=== PATIENT | female | born 1950 | race Caucasian/White ===

== ENCOUNTER → 2018-06-13 | Outpatient (CLI) | payer MEDICARE ==
--- NOTE | 2018-06-13 17:22 | BD ---
EXAMINATION TYPE: Axial Bone Density DATE OF EXAM: 06/13/2018 COMPARISON: 11.09.2012 CLINICAL HISTORY: 67 YR OLD FEMALE....ICD-10 CODE: Z78.0 POST MENOPAUSAL W/O HRT Height: 62.2 Weight: 115 FRAX RISK QUESTIONS: Current Tobacco Use: QUIT DEC 2016 RISK FACTORS HISTORY OF: HX OF BOTH FEET/TOES FRACTURED...UNDER AGE 50 Family History of Osteoporosis: NONE KNOWN Active: YES Diet low in dairy products/other sources of calcium: NO Postmenopausal woman: YES, AT AGE 52 Lost more than 2 inches in height since high school: YES MEDICATIONS: Additional Medications: CALCIUM AND D3 IN MULTIVITAMIN, Additional History: EYE SURGERY EXAM MEASUREMENTS: Bone mineral densitometry was performed using the [employer] System. Bone mineral density as measured about the Lumbar spine is: ----- L1-L4(G/cm2): 0.961 T Score Values are as follows: ----- L1: -3.2 ----- L2: -3.5 ----- L3: -1.8 ----- L4: -0.8 ----- L1-L4: -2.2 Bone mineral density has: Decreased -4.7% since study of: 11.09.2012 Bone mineral density about the R hip (g/cm2): 0.739 Bone mineral density about the L hip (g/cm2): 0.678 T Score values are as follows: -----R Neck: -2.9 -----L Neck: -2.7 -----R Total: -2.1 -----L Total: -2.6 Bone mineral density has: Decreased -4.1% since study of: 11.09.2012 FRAX%s: THERE IS A 15.6% CHANCE OF A MAJOR OSTEOPOROTIC FX AND A 4.8% FOR A HIP FX.....PROBABILITY OF FX IN 10 YRS TIME IMPRESSION: Osteoporosis (T Score less than -2.5). There is increased fracture risk and therapy is usually indicated based on age. Re-Screen 1-2 years. NOTE: T-SCORE=SD OF THE YOUNG ADULT MEAN.
--- NOTE | 2018-06-15 12:44 | MM ---
Reason for exam: screening (asymptomatic). Last mammogram was performed 1 year and 11 months ago. History: Patient is postmenopausal and had first child at age 35. Physical Findings: A clinical breast exam by your physician is recommended on an annual basis and results should be correlated with mammographic findings. MG 3D Screening Mammo W/Cad Bilateral CC and MLO view(s) were taken. Prior study comparison: July 13, 2016, bilateral MG 3d screening mammo w/cad. November 09, 2012, bilateral digital screening mammo w/CAD. The breast tissue is heterogeneously dense. This may lower the sensitivity of mammography. Asymmetric breast tissue in the left breast, stable. There is no discrete abnormality. ASSESSMENT: Negative, BI-RAD 1 RECOMMENDATION: Routine screening mammogram of both breasts in 1 year.
== END ==
LOC: RADMAMWWP 12:50
PROVIDERS: ATTEND Family Medicine
DX: Z12.31 Encounter for screening mammogram for malignant neoplasm of breast (principal); Z78.0 Asymptomatic menopausal state; M81.0 Age-related osteoporosis without current pathological fracture
CPT/HCPCS: 77063; 77067; 77080

== ENCOUNTER → 2018-06-19 | Outpatient (CLI) | payer MEDICARE ==
--- NOTE | 2018-06-19 12:43 | XR ---
EXAMINATION TYPE: XR lumbar spine 2 or 3V DATE OF EXAM: 06/19/2018 CLINICAL HISTORY: Low back pain for 6 months with no known injury TECHNIQUE: Frontal and lateral images of the lumbar spine are obtained. COMPARISON: 06/20/2013 FINDINGS: There are 5 lumbar type vertebral bodies identified. The lumbar spine shows satisfactory vertebral body heights without acute fracture. There is new grade 1 anterolisthesis of L4 on L5, like ly on a degenerative basis with extensive facet arthropathy. Multilevel degenerative changes of the l umbar spine have progressed from the prior of 2012 and are seen as endplate sclerosis, intervertebral disc space narrowing and facet arthropathy. There also appears to be mild generalized osseous demine ralization. 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 Very mild lower lumbar dextroscoliosis. Moderate atherosclerosis is also seen in the abdominal aorta and its branches. Over lying bowel is nondilated. IMPRESSION: 1. No new evidence of acute fracture or vertebral body height loss. 2. New malalignment of the lumbar spine (grade 1 anterolisthesis of L4 on L5) in comparison to the pr ior of 06/20/2013, likely on a degenerative basis. 3. Progression of degenerative disc disease in comparison to the prior, now moderate in degree.
== END | disposition home or self-care (01) ==
LOC: RADXRMAIN 12:06
PROVIDERS: ATTEND Internal Medicine Geriatric Medicine
DX: M51.36 Other intervertebral disc degeneration, lumbar region (principal); M43.16 Spondylolisthesis, lumbar region
CPT/HCPCS: 72100

== ENCOUNTER 2018-07-27 06:49 | Day surgery (SDC) | payer MEDICARE ==
[2018-07-25 10:35] VITALS: BMI 20.5
[~2018-07-27 06:49] MED LIST: LACTATED RINGERS 1,000 ML IV SCH
[2018-07-27 07:19] VITALS: TEMP 98.2
[2018-07-27] MEDS ORDERED: PROPOFOL 10 MG/ML 20 ML VIAL IV ONE (07:43)
[2018-07-27] MEDS ORDERED: GLUCAGON 1 MG/ML VIAL ONE (07:43)
--- NOTE | 2018-07-27 08:02 | P.GSHP ---
History of Present Illness H&P Date: 07/27/18 Chief Complaint: Screening colonoscopy This is a 67-year-old female who presents today for screening colonoscopy. Her last colonoscopy was over 10 years ago. She denies a significant GI complaints. Past Medical History Additional Past Medical History / Comment(s): sinus headaches, hx anemia, History of Any Multi-Drug Resistant Organisms: None Reported Past Surgical History: Tonsillectomy Additional Past Surgical History / Comment(s): rupal eye surgery for lazy eye, RK surgery rupal, Past Anesthesia/Blood Transfusion Reactions: No Reported Reaction Smoking Status: Former smoker - Past Family History Mother Family Medical History: No Reported History Medications and Allergies Home Medications Medication Instructions Recorded Confirmed Type Calcium Gummie 1 tab PO DAILY 07/25/18 07/27/18 History Multivitamin [Multivitamins Adult 1 each PO DAILY 07/25/18 07/27/18 History Gummies] Allergies Allergy/AdvReac Type Severity Reaction Status Date / Time acetaminophen [From Vicodin] Allergy Nausea & Verified 07/25/18 10:27 Vomiting hydrocodone [From Vicodin] Allergy Nausea & Verified 07/25/18 10:27 Vomiting Surgical - Exam Vital Signs Temp Pulse Resp BP Pulse Ox 98.2 F 65 14 93/56 100 07/27/18 07:17 07/27/18 07:17 07/27/18 07:17 07/27/18 07:17 07/27/18 07:17 - General well developed, no distress - Eyes PERRL - ENT normal pinna - Neck no masses - Respiratory normal expansion - Cardiovascular Rhythm: regular - Abdomen Abdomen: soft, non tender Assessment and Plan Assessment: We will perform screening colonoscopy.
[2018-07-27 08:28] VITALS: RESP 16
[2018-07-27 08:52] VITALS: BP 105/61; PULSE 55
--- NOTE | 2018-07-27 09:26 | P.OP ---
Date of Procedure: 07/27/18 Preoperative Diagnosis: Screening colonoscopy Postoperative Diagnosis: Hemorrhoids, internal and external Diverticulosis Sigmoid colon polyp Procedure(s) Performed: Colonoscopy Anesthesia: MAC Surgeon: Alfredo Zamora Pathology: other (Sigmoid colon polyp) Condition: stable Disposition: PACU Description of Procedure: The patient's placed on the endoscopy table in the lateral position. She received IV sedation. Digital rectal exam was performed which revealed internal and external hemorrhoids. The flexible colonoscope was then placed patient anus and passed throughout the entire colon. The ileocecal valve was visualized. The cecum, ascending and transverse colon appeared normal. In the descending and sigmoid colon there was moderate diverticular changes. There was a polyp seen in the sigmoid colon this removed with a cold forcep. The scope was brought back the rectum and this appeared normal. Scope was withdrawn for patient.
== END 2018-07-27 09:19 | disposition home or self-care (01) ==
LOC: ORWHC2ENDO 06:49
PROVIDERS: ATTEND Surgery
DX: Z12.11 Encounter for screening for malignant neoplasm of colon (principal); K63.5 Polyp of colon; K64.8 Other hemorrhoids; K64.4 Residual hemorrhoidal skin tags; K57.30 Diverticulosis of large intestine without perforation or abscess without bleeding; Z88.6 Allergy status to analgesic agent; Z88.5 Allergy status to narcotic agent; Z87.891 Personal history of nicotine dependence
CPT/HCPCS: 88305; 45380; J1610; J2704

== ENCOUNTER → 2020-09-29 | Outpatient (CLI) | payer MEDICARE ==
--- NOTE | 2020-09-29 13:50 | BD ---
EXAMINATION TYPE: Axial Bone Density DATE OF EXAM: 09/29/2020 COMPARISON: NONE CLINICAL HISTORY: Height: 63 Weight: 130.2 FRAX RISK QUESTIONS: Alcohol (3 or more units per day): no Family History (Parent hip fracture): no Glucocorticoids (More than 3mos): no (Ex: prednisone, prednisolone, methylprednisolone, dexamethasone, and hydrocortisone). History of Fracture in Adulthood: no Secondary Osteoporosis: 1. Type 1 Diabetes: no 2. Hyperthyroidism: no 3. Menopause before 45: no 4. Malnutrition: no 5. Chronic liver disease: no Rheumatoid Arthritis: no Current Tobacco Use: no RISK FACTORS HISTORY OF: Family History of Osteoporosis: no Active: yes Diet low in dairy products/other sources of calcium: yes Postmenopausal woman: age 55 Lost more than 2 inches in height since high school: no MEDICATIONS: wellbutrin Osteoporosis Medications: prolia How Long: Additional History: EXAM MEASUREMENTS: Bone mineral densitometry was performed using the [employer] System. Bone mineral density as measured about the Lumbar spine is: ----- L1-L4(G/cm2): 1.077 T Score Values are as follows: ----- L2: -2.2 ----- L3: -0.9 ----- L4: 2.1 ----- L1-L4: -0.9 Bone mineral density has: increased 18.4 % since study of: 06.13.2018 Bone mineral density about the R hip (g/cm2): 0.670 Bone mineral density about the L hip (g/cm2): 0.763 T Score values are as follows: -----R Neck: -2.6 -----L Neck: -2.0 -----R Total: -1.7 -----L Total: -2.2 Bone mineral density has: increased 5.7 % since study of: 06.13.2018 IMPRESSION: Osteopenia (T Score between -2.5 and -1). There is slightly increased risk of fracture and the patient may be considered for treatment. Re-Screen 2-5 years. NOTE: T-SCORE=SD OF THE YOUNG ADULT MEAN.
--- NOTE | 2020-10-01 08:32 | MM ---
Reason for exam: screening (asymptomatic). Last mammogram was performed 2 years and 4 months ago. History: Patient is postmenopausal and had first child at age 35. Physical Findings: A clinical breast exam by your physician is recommended on an annual basis and results should be correlated with mammographic findings. MG 3D Screening Mammo W/Cad Bilateral CC and MLO view(s) were taken. Prior study comparison: June 13, 2018, bilateral MG 3d screening mammo w/cad. July 13, 2016, bilateral MG 3d screening mammo w/cad. Focal asymmetry right outer CC. This finding is changed when compared with previous exams. ASSESSMENT: Incomplete: need additional imaging evaluation, BI-RAD 0 RECOMMENDATION: Special view mammogram of the right breast. If lesion persists on supplemental views, image directed ultrasound is recommended. [facility] will attempt to contact patient to return for supplemental views and ultrasound if indicated.
== END | disposition home or self-care (01) ==
LOC: RADMAMWWP 12:29
PROVIDERS: ATTEND Internal Medicine Geriatric Medicine
DX: Z12.31 Encounter for screening mammogram for malignant neoplasm of breast (principal); M81.0 Age-related osteoporosis without current pathological fracture; M85.80 Other specified disorders of bone density and structure, unspecified site
CPT/HCPCS: 77063; 77067; 77080

== ENCOUNTER → 2020-10-02 | Outpatient (CLI) | payer MEDICARE ==
--- NOTE | 2020-10-02 08:19 | MM ---
Reason for exam: additional evaluation requested from abnormal screening. Last mammogram was performed less than 1 month ago. History: Patient is postmenopausal and had first child at age 35. Physical Findings: Nurse did not find any significant physical abnormalities on exam. MG 3D Work Up W/Cad RT Spot compression CC and LM view(s) were taken of the right breast. Prior study comparison: September 29, 2020, bilateral MG 3d screening mammo w/cad. June 13, 2018, bilateral MG 3d screening mammo w/cad. There are scattered fibroglandular densities. There is no discrete abnormality. These results were verbally communicated with the patient and result sheet given to the patient on 10/02/20. ASSESSMENT: Benign, BI-RAD 2 RECOMMENDATION: Return to routine screening mammogram schedule for both breasts.
== END | disposition home or self-care (01) ==
LOC: RADMAMWWP 07:02
PROVIDERS: ATTEND Internal Medicine Geriatric Medicine
DX: R92.8 Other abnormal and inconclusive findings on diagnostic imaging of breast (principal)
CPT/HCPCS: 77065; G0279; 77061

== ENCOUNTER 2020-11-04 09:26 | Day surgery (SDC) | payer MEDICARE ==
[2020-10-30 16:57] VITALS: BMI 22.4
[~2020-11-04 09:26] MED LIST changes: +LIDOCAINE 1% (10MG/ML) FOR IV START INTRADERMA PRN
[2020-11-04 09:50] VITALS: TEMP 97.6
[2020-11-04] MEDS ORDERED: PROPOFOL 10 MG/ML 20 ML VIAL IV ONE (10:27)
--- NOTE | 2020-11-04 10:30 | P.GSHP ---
History of Present Illness H&P Date: 11/04/20 Chief Complaint: Colon cancer screening Patient here today for colonoscopy. Here for screening colonoscopy. No bowel complaints. Last colonoscopy 2 years ago. Patient had a benign mucosal polyp at that time. No family history of colon cancer Past Medical History Additional Past Medical History / Comment(s): hx anemia, hx. colon polyps, osteoporosis History of Any Multi-Drug Resistant Organisms: None Reported Past Surgical History: Tonsillectomy Additional Past Surgical History / Comment(s): rupal eye surgery for lazy eye, RK surgery rupal, colonoscopy Past Anesthesia/Blood Transfusion Reactions: No Reported Reaction Smoking Status: Former smoker - Past Family History Mother Family Medical History: No Reported History Medications and Allergies Home Medications Medication Instructions Recorded Confirmed Type Denosumab [Prolia] 60 mg SQ ONCE 10/30/20 10/30/20 History buPROPion XL [Wellbutrin Xl] 150 mg PO DAILY 10/30/20 10/30/20 History Allergies Allergy/AdvReac Type Severity Reaction Status Date / Time acetaminophen [From Vicodin] AdvReac Nausea & Verified 11/04/20 09:41 Vomiting hydrocodone [From Vicodin] AdvReac Nausea & Verified 11/04/20 09:41 Vomiting Surgical - Exam Vital Signs Temp Pulse Resp BP Pulse Ox 97.6 F 70 17 136/88 98 11/04/20 09:48 11/04/20 09:48 11/04/20 09:48 11/04/20 09:48 11/04/20 09:48 Physical exam: General: Well-developed, well-nourished HEENT: Normocephalic, sclerae nonicteric Abdomen: Nontender, nondistended Extremities: No edema Neuro: Alert and oriented Assessment and Plan (1) Colon cancer screening Narrative/Plan: Will proceed with colonoscopy at this time Current Visit: Yes Status: Acute Code(s): Z12.11 - ENCOUNTER FOR SCREENING FOR MALIGNANT NEOPLASM OF COLON SNOMED Code(s): 530778903
--- NOTE | 2020-11-04 11:06 | P.PCN ---
Date of Procedure: 11/04/20 Procedure(s) Performed: PREOPERATIVE DIAGNOSIS: Colon cancer screening POSTOPERATIVE DIAGNOSIS: Proximal transverse colon polyp 2, descending colon polyp PROCEDURE: Colonoscopy with snare polypectomy ANESTHESIA: MAC SURGEON: Vu Kinsey M.D. SPECIMENS: Polyps ENDOSCOPIC PROCEDURE: The patient was placed on the endoscopy table in the left decubitus position. The Olympus colonoscope was inserted into the anus and passed under direct visualization to the base of the cecum. The appendiceal orifice was visualized. From that point the scope was slowly withdrawn inspecting all surfaces carefully. There were no neoplastic inflammatory or polypoid lesions throughout the cecum or ascending colon. In the proximal transverse colon there was a sessile polyp that measured 8 mm and was removed using the snare with cautery technique. A long a fold opposite this polyp was a thickened area of mucosa. Initially I took a biopsy of that to see if this was adenomatous. As we inspected more closely it did appear polypoid in nature and was partially removed using the snare with cautery technique. These were all sent together as transverse colon polyp. The transverse colon distally appeared normal. In the mid descending colon another polyp was seen and removed using the snare with cautery technique. The remainder of the sigmoid and rectum was normal. There was no visible diverticulosis. Digital rectal examination was normal. The patient was taken to the recovery room in stable condition per anesthesia guidelines. RECOMMENDATIONS: Await biopsy results. Recommend follow-up colonoscopy one year
[2020-11-04 11:15] VITALS: RESP 16
[2020-11-04 11:33] VITALS: BP 112/73; PULSE 62
== END 2020-11-04 12:03 | disposition home or self-care (01) ==
LOC: ORWHC2ENDO 09:26
PROVIDERS: ATTEND Surgery
DX: D12.3 Benign neoplasm of transverse colon (principal); K63.5 Polyp of colon; D12.4 Benign neoplasm of descending colon; Z86.010 Personal history of colon polyps; M81.0 Age-related osteoporosis without current pathological fracture; K08.89 Other specified disorders of teeth and supporting structures; F32.9 Major depressive disorder, single episode, unspecified; Z98.890 Other specified postprocedural states; Z86.2 Personal history of diseases of the blood and blood-forming organs and certain disorders involving the immune mechanism; Z90.89 Acquired absence of other organs; Z86.69 Personal history of other diseases of the nervous system and sense organs; Z87.891 Personal history of nicotine dependence; Z79.899 Other long term (current) drug therapy; Z88.5 Allergy status to narcotic agent
CPT/HCPCS: 45385; 88305; J2704; 45380

== ENCOUNTER → 2022-09-10 | Outpatient (CLI) | payer MEDICARE ==
[2022-09-10 11:56] LABS: African American GFR (CKD) >90 (>60 ml/min/1.73 sqM); Blood Urea Nitrogen 16 mg/dL (7-17); Non-African American GFR(CKD) 80 (>60 ml/min/1.73 sqM)
--- NOTE | 2022-09-10 13:35 | CT ---
EXAMINATION TYPE: CT abdomen pelvis w con DATE OF EXAM: 09/10/2022 COMPARISON: None HISTORY: LLQ pain, Lt groin pain CT DLP: 494 mGycm Automated exposure control for dose reduction was used. TECHNIQUE: Helical acquisition of images was performed from the lung bases through the pelvis. CONTRAST: Performed with Oral Contrast and with IV Contrast, patient injected with 70 mL of Isovue 300. FINDINGS: The lung bases are clear. There is a small ill-defined 10 mm low-density lesion within the liver which most likely represents a benign hemangioma. There is a tiny gallstone. There is no mass within the pancreas, spleen or adrenal glands. The kidneys excrete contrast promptly and symmetrically and there is no solid renal mass or hydroneph rosis. There is no retroperitoneal adenopathy or hemorrhage in the caliber the abdominal aorta is normal. There is a short segment of sigmoid colon where the bowel wall appears mildly thickened and there are multiple diverticula. There is a moderate amount of free fluid within the cul-de-sac. There is no abdominal abscess or free intraperitoneal air. IMPRESSION: 1. Questionable inflammatory changes involving the sigmoid colon with free fluid in the pelvis. The p ossibility of diverticulitis is not excluded and clinical correlation follow-up is recommended. 2. No bowel obstruction, abdominal or pelvic abscess or free intraperitoneal air. 3. Small gallstone. 4. Probable small 10 mm hemangioma the liver.
== END | disposition home or self-care (01) ==
LOC: RADCTMAIN 11:07
PROVIDERS: ATTEND Internal Medicine Geriatric Medicine
DX: K80.20 Calculus of gallbladder without cholecystitis without obstruction (principal)
CPT/HCPCS: 82565; 84520; 74177; 36415; Q9967

== ENCOUNTER → 2022-10-01 | Outpatient (CLI) | payer MEDICARE ==
--- NOTE | 2022-10-01 09:31 | US ---
EXAMINATION TYPE: US transvaginal DATE OF EXAM: 10/01/2022 COMPARISON: NONE CLINICAL HISTORY: R10.2 PELVIC PAIN. LLQ pain, burning sensation and pain TECHNIQUE: TV Transvaginal sonographic images Date of LMP: 20 years ago EXAM MEASUREMENTS: Uterus: 4.7 x 2.4 x 3.9 cm Endometrial Stripe: 0.17 cm Right Ovary: not seen Left Ovary: not seen 1. Uterus: Anteverted wnl 2. Endometrium: fluid seen, not thickened 3. Right Ovary: not seen due to atrophy and bowel gas 4. Left Ovary: not seen due to atrophy and bowel gas 5. Bilateral Adnexa: varicose vessels are prominent within left adnexa, possible pelvic congestion s yndrome 6. Posterior cul-de-sac: wnl IMPRESSION: 1. Endometrium measures only 2 mm but there is a small amount of fluid within the endometrium. This s hould be correlated clinically. Recommend gynecology consultation 2. The ovaries are not seen. 3. Varicose vessels are prominent in the left adnexa suggestive of pelvic varices and can occasionall y be associated with pelvic congestion syndrome.
--- NOTE | 2022-10-01 10:39 | BD ---
EXAMINATION TYPE: Axial Bone Density DATE OF EXAM: 10/01/2022 COMPARISON: 09/29/2020 CLINICAL HISTORY: 72 years year old Female. ICD-10 CODE: M81.0 AGE RELATED OSTEOPOROSIS Height: 62.5 IN Weight: 137 LBS RISK FACTORS HISTORY OF: Active: YES Postmenopausal woman: AGE 52 MEDICATIONS: Osteoporosis Medications: YES Which medication: Prolia FOSAMAX How Lon YEARS Additional Medications: CHOLESTEROL MEDS EXAM MEASUREMENTS: Bone mineral densitometry was performed using the [employer] System. Bone mineral density as measured about the Lumbar spine is: ----- L1-L4(G/cm2): 1.152 T Score Values are as follows: ----- L1: -2.0 ----- L2: -1.7 ----- L3: -0.3 ----- L4: 2.3 ----- L1-L4: -0.2 Bone mineral density has: Increased 6.6% since study of: 09/29/2020 Bone mineral density about the R hip (g/cm2): 0.696 Bone mineral density about the L hip (g/cm2): 0.729 T Score values are as follows: -----R Neck: -2.5 -----L Neck: -2.2 -----R Total: -1.6 -----L Total: -2.7 Bone mineral density has: Decreased -2.4% since study of: 09/29/2020 FRAX%s: The graph provided illustrates a 6.7 chance for a major osteoporotic fx and a 2.3 chance for the hips probability for fx in 10 years time. IMPRESSION: Osteoporosis (T Score less than -2.5). There is increased fracture risk and therapy is usually indicated based on age. Re-Screen 1-2 years. NOTE: T-SCORE=SD OF THE YOUNG ADULT MEAN.
--- NOTE | 2022-10-04 10:44 | MM ---
Reason for Exam: Screening (asymptomatic). Last mammogram was performed 2 year(s) and 0 month(s) ago. Patient History: Menarche at age 14. First Full-Term at age 35. Late child-bearing (after 30). Postmenopausal. Patient has history of breast feeding. Risk Values: Nayeli 5 year model risk: 2.2%. NCI Lifetime model risk: 5.7%. Prior Study Comparison: 06/13/2018 Bilateral Screening Mammogram, [facility]. 09/29/2020 Bilateral Screening Mammogram, [facility]. 10/02/2020 Right Diagnostic Mammogram, [facility]. Tissue Density: The breast tissue is heterogeneously dense. This may lower the sensitivity of mammography. Findings: Analyzed By CAD. There is no suspicious group of microcalcifications or new suspicious mass in either breast. Overall Assessment: Negative, BI-RAD 1 Management: Screening Mammogram of both breasts in 1 year. A clinical breast exam by your physician is recommended on an annual basis and results should be correlated with mammographic findings. [facility] will attempt to contact patient to return for supplemental views and ultrasound if indicated. Electronically signed and approved by: Marcelo Jolley DO
== END | disposition home or self-care (01) ==
LOC: RADUSWWP 08:27
PROVIDERS: ATTEND Internal Medicine Geriatric Medicine
DX: Z12.31 Encounter for screening mammogram for malignant neoplasm of breast (principal); M81.0 Age-related osteoporosis without current pathological fracture; Z78.0 Asymptomatic menopausal state; R10.2 Pelvic and perineal pain
CPT/HCPCS: 76830; 77063; 77067; 77080

== ENCOUNTER 2022-10-14 10:01 | Day surgery (SDC) | payer MEDICARE ==
[2022-10-12 11:49] VITALS: BMI 24.3
[2022-10-14 10:42] VITALS: TEMP 97.1
[2022-10-14] MEDS ORDERED: PROPOFOL 10 MG/ML 20 ML VIAL IV ONE (11:01)
--- NOTE | 2022-10-14 11:02 | P.GSHP ---
History of Present Illness H&P Date: 10/14/22 Chief Complaint: Diverticulitis Is a 72-year-old female with previous history of diverticulitis. Patient presents today for colonoscopy Past Medical History Additional Past Medical History / Comment(s): osteoporosis, recovering alcoholic , states having pain above left groin, states recent x-ray showed varicose veins in pelvis., anemia as a child. History of Any Multi-Drug Resistant Organisms: None Reported Past Surgical History: Tonsillectomy Additional Past Surgical History / Comment(s): rupal eye surgery for lazy eye, RK surgery rupal, colonoscopy Past Anesthesia/Blood Transfusion Reactions: No Reported Reaction, Postoperative Nausea & Vomiting (PONV) Additional Past Anesthesia/Blood Transfusion Reaction / Comment(s): ponv as child with tonsillectomy. Past Psychological History: Depression Smoking Status: Former smoker Past Alcohol Use History: Heavy Additional Past Alcohol Use History / Comment(s): quit smoking 2016, smoked for 35 yrs, 1/2 PPD. quit drinking 19 yrs ago, recovering alcoholic Past Drug Use History: None Reported - Past Family History Mother Family Medical History: No Reported History Medications and Allergies Home Medications Medication Instructions Recorded Confirmed Type Atorvastatin [Lipitor] 10 mg PO DAILY 10/12/22 10/14/22 History Inulin/Chromium Picolinate [Fiber 1 tab PO DAILY 10/12/22 10/14/22 History Gummies Chew] Allergies Allergy/AdvReac Type Severity Reaction Status Date / Time hydrocodone [From Vicodin] AdvReac Nausea & Verified 10/14/22 10:54 Vomiting Surgical - Exam Vital Signs Temp Pulse Resp BP Pulse Ox 97.1 F L 73 18 115/70 98 10/14/22 10:38 10/14/22 10:38 10/14/22 10:38 10/14/22 10:38 10/14/22 10:38 - General well developed, well nourished, no distress - Eyes PERRL - ENT normal pinna - Neck no masses - Respiratory normal expansion - Cardiovascular Rhythm: regular - Abdomen Abdomen: soft, non tender Assessment and Plan Assessment: History of diverticula is. We'll perform colonoscopy
--- NOTE | 2022-10-14 11:19 | P.OP ---
Date of Procedure: 10/14/22 Preoperative Diagnosis: Diverticulitis Postoperative Diagnosis: External hemorrhoids Diverticulosis Left colon polyp Procedure(s) Performed: Colonoscopy Anesthesia: MAC Surgeon: Alfredo Zamora Pathology: other (Polyp) Condition: stable Disposition: PACU Description of Procedure: The patient's placed on the endoscopy table in the lateral position. She received IV sedation. Digital rectal exam was performed. External hemorrhoids were noted. The colonoscope was then placed patient anus passed throughout the entire colon. The ileocecal valve visually is. The cecum, ascending and transverse colon appeared normal. In the descending colon and proximal the 60 cm there was a large productive polyp. This removed with the snare. There was a few scattered diverticuli in the descending colon. In the sigmoid: There is extensive diverticular changes. Scope was then brought back the rectum and this appeared normal. Scope withdrawn for patient.
[2022-10-14 12:13] VITALS: BP 118/64; PULSE 63; RESP 18
== END 2022-10-14 12:25 | disposition home or self-care (01) ==
LOC: ORWHC2ENDO 10:01
PROVIDERS: ATTEND Surgery
DX: D12.4 Benign neoplasm of descending colon (principal); K64.4 Residual hemorrhoidal skin tags; K57.30 Diverticulosis of large intestine without perforation or abscess without bleeding; F10.21 Alcohol dependence, in remission; F32.A Depression, unspecified; Z87.891 Personal history of nicotine dependence; Z90.89 Acquired absence of other organs; Z79.899 Other long term (current) drug therapy; Z86.2 Personal history of diseases of the blood and blood-forming organs and certain disorders involving the immune mechanism; Z87.39 Personal history of other diseases of the musculoskeletal system and connective tissue; Z88.5 Allergy status to narcotic agent; Z98.890 Other specified postprocedural states; Z79.02 Long term (current) use of antithrombotics/antiplatelets
CPT/HCPCS: 88305; 45385; J2704

== ENCOUNTER → 2024-02-28 | Outpatient (CLI) | payer MEDICARE ==
--- NOTE | 2024-03-01 23:02 | CT ---
EXAMINATION TYPE: CT heart w calcium score DATE OF EXAM: 02/28/2024 COMPARISON: None HISTORY: Screening for cardiovascular disorder. 213.9 CT DLP: 67.2 mGycm Automated exposure control for dose reduction was used. CT CALCIUM SCORING Coronary calcium is a marker for plaque (fatty deposits) in a blood vessel or atherosclerosis (harden ing of the arteries). The presence and amount of calcium detected in a coronary artery by the CT sca n, indicates the presence and amount of atherosclerotic plaque. These calcium deposits appear years before the development of heart disease symptoms such as chest pain and shortness of breath. A calcium score is computed for each of the coronary arteries based upon the volume and density of th e calcium deposits. This can be referred to as your calcified plaque burden. It does not correspond directly to the percentage of narrowing in the artery but does correlate with the severity of the un derlying coronary atherosclerosis. PROCEDURE TECHNIQUE - Prospective Gating was used. Slice thickness: 3mm. Density threshold (HU): 130, Pixel threshold: 3, Algorithm: discrete. RESULTS Region: LM Calcium Score ([place]): 148.44 Volume (mm3): 130.21 Mass (g): 43.4 Region: RCA Calcium Score ([place]): 0 Volume (mm3): 0 Mass (g): 0 Region: LAD Calcium Score ([place]): 0 Volume (mm3): 0 Mass (g): 0 Region: CX Calcium Score ([place]): 0 Volume (mm3): 0 Mass (g): 0 Region: PDA Calcium Score ([place]): 0 Volume (mm3): 0 Mass (g): 0 Total: Calcium Score ([place]): 148.44 Volume (mm3): 130.21 Mass (g): 43.4 TOTAL CALCIUM SCORE: 148.44 IMPRESSION: Calcium Score: 148 Implication: Definite atheromatous plaquing at least moderate atherosclerotic plaque Risk of Coronary Artery Disease: There is mild coronary artery disease highly likely. Significant cor onary artery narrowing may be present. Impression: 1. Coronary artery disease highly likely and narrowing possible. Recommend additional cardiac workup. CALCIUM SCORE IMPLICATION RISK OF C ORONARY ARTERY DISEASE 0 No identifiable plaque Very low, generally less than 5% 1-10 Minimal identifiable plaque Very unlikely, less than 10% 11-100 Definite, at least mild atherosclerotic plaque Mild or m inimal coronary narrowings likely 101-400 Definite, at least moderate atherosclerotic plaque Mild coronary ar amber disease highly likely, significant narrowing possible 401 or Higher Extensive atherosclerotic plaque High lik elihood of at least one significant coronary narrowing
== END | disposition home or self-care (01) ==
LOC: RADCTMAIN 11:53
PROVIDERS: ATTEND Internal Medicine Geriatric Medicine
DX: Z12.2 Encounter for screening for malignant neoplasm of respiratory organs (principal); Z13.6 Encounter for screening for cardiovascular disorders; I25.10 Atherosclerotic heart disease of native coronary artery without angina pectoris
CPT/HCPCS: 75571

== ENCOUNTER 2024-10-08 10:00 | Day surgery (SDC) | payer MEDICARE ==
[2024-10-05 09:28] VITALS: BMI 21.2
[2024-10-08] MEDS: IV FLUID CONTINUATION 1,000 ML IV ONE (10:07)
[2024-10-08] MEDS: LACTATED RINGERS 1,000 ML IV SCH (10:08)
[2024-10-08 10:18] VITALS: TEMP 97.6
[2024-10-08] MEDS ORDERED: PROPOFOL 10 MG/ML 20 ML VIAL IV ONE (11:41)
[2024-10-08] MEDS ORDERED: GLUCAGON 1 MG/ML VIAL ONE (11:41)
--- NOTE | 2024-10-08 11:42 | P.GSHP ---
History of Present Illness H&P Date: 10/08/24 Chief Complaint: History colon polyps This 74-year-old female with a previous history colon polyps. Patient resents today for colonoscopy. Past Medical History Additional Past Medical History / Comment(s): osteoporosis, recovering alcoholic since 2002 , showed varicose veins in pelvis., anemia as a child. History of Any Multi-Drug Resistant Organisms: None Reported Past Surgical History: Tonsillectomy Additional Past Surgical History / Comment(s): rupal eye surgery for lazy eye, RK surgery rupal, colonoscopy Past Anesthesia/Blood Transfusion Reactions: No Reported Reaction, Postoperative Nausea & Vomiting (PONV) Additional Past Anesthesia/Blood Transfusion Reaction / Comment(s): ponv as child with tonsillectomy. Smoking Status: Former smoker - Past Family History Mother Family Medical History: No Reported History Medications and Allergies Home Medications Medication Instructions Recorded Confirmed Type Atorvastatin [Lipitor] 10 mg PO DAILY 10/12/22 10/08/24 History Multivit-Min/Iron/Folic/Lutein 1 each PO DAILY 10/05/24 10/05/24 History [Centrum Silver Women Tablet] Psyllium Husk (with Sugar) 1 dose PO DAILY 10/05/24 10/08/24 History [Metamucil Powder] Allergies Allergy/AdvReac Type Severity Reaction Status Date / Time hydrocodone [From Vicodin] AdvReac Nausea & Verified 10/08/24 10:16 Vomiting Surgical - Exam Vital Signs Temp Pulse Resp BP Pulse Ox 97.6 F 85 16 136/69 92 L 10/08/24 10:17 10/08/24 10:17 10/08/24 10:17 10/08/24 10:17 10/08/24 10:17 - General well developed, well nourished, no distress - Eyes PERRL - ENT normal pinna - Neck no masses - Respiratory normal expansion - Cardiovascular Rhythm: regular - Abdomen Abdomen: soft, non tender Assessment and Plan Assessment: History colon polyps. Will perform colonoscopy.
--- NOTE | 2024-10-08 12:13 | P.OP ---
Date of Procedure: 10/08/24 Preoperative Diagnosis: History of colon polyps Postoperative Diagnosis: Diverticulosis Colon polyps Procedure(s) Performed: Colonoscopy Anesthesia: MAC Surgeon: Alfredo Zamora Pathology: other (Colon polyp) Condition: stable Disposition: PACU Description of Procedure: Patient is placed on the endoscopy table in the lateral position. She received IV sedation. Digital rectal exams performed. This revealed no abnormalities. The flexible colonoscope was then placed patient anus passed with the colon. Patient a poor colon prep. The right colon cannot be visualized due to large amount of liquid stool. This point scope withdrawn. At the area of the hepatic flexure there was a polyp seen. This removed with the snare. However the polyp was lost in retrieval. The polyp could not be visualized after it was removed. COVID back further back. There was diverticular changes noted in the transverse colon. More diverticular changes noted in the descending colon. In the sigmoid colon at 30 cm polyp there is no polyp seen was removed with a cold forcep. Scope was brought back to the rectum this appeared normal. Scope withdrawn the patient.
[2024-10-08 12:32] VITALS: BP 100/65; PULSE 63; RESP 18
== END 2024-10-08 12:50 | disposition home or self-care (01) ==
LOC: ORWHC2ENDO 10:00
PROVIDERS: ATTEND Surgery
DX: K63.5 Polyp of colon (principal); K57.30 Diverticulosis of large intestine without perforation or abscess without bleeding; M81.0 Age-related osteoporosis without current pathological fracture; E78.5 Hyperlipidemia, unspecified; F10.21 Alcohol dependence, in remission; F32.A Depression, unspecified; R63.0 Anorexia; Z90.89 Acquired absence of other organs; Z87.891 Personal history of nicotine dependence; Z88.5 Allergy status to narcotic agent; Z79.02 Long term (current) use of antithrombotics/antiplatelets; Z79.899 Other long term (current) drug therapy
CPT/HCPCS: 88305; 45380; 45385; J1610; J2704

== ENCOUNTER 2025-01-21 10:11 | Outpatient (CLI) | payer MEDICARE ==
[2025-01-21 10:21] VITALS: BP 114/72; PULSE 72; RESP 16; TEMP 97.6
[2025-01-21] MEDS: DENOSUMAB 60 MG/ML 1 ML SYRINGE SQ ONE (10:21)
== END 2025-01-21 10:40 | disposition home or self-care (01) ==
LOC: PROCWHC3 10:11
PROVIDERS: ATTEND Internal Medicine Geriatric Medicine
DX: M81.0 Age-related osteoporosis without current pathological fracture (principal)
CPT/HCPCS: 96372; J0897

== ENCOUNTER → 2025-05-10 | Outpatient (CLI) | payer MEDICARE ==
--- NOTE | 2025-05-10 15:17 | MM ---
Reason for Exam: Screening (asymptomatic). Last mammogram was performed 2 year(s) and 7 month(s) ago. Patient History: Menarche at age 14. First Full-Term at age 35. Late child-bearing (after 30). Postmenopausal. Patient has history of breast feeding. Risk Values: Nayeli 5 year model risk: 2.2%. NCI Lifetime model risk: 5.1%. Prior Study Comparison: 09/29/2020 Bilateral Screening Mammogram, [facility]. 10/02/2020 Right Diagnostic Mammogram, [facility]. 10/01/2022 Bilateral MG 3D screening mammo w/cad, [facility]. Tissue Density: The breasts are heterogeneously dense, which may obscure small masses. Findings: Analyzed By CAD. Right breast: There is no suspicious group of microcalcifications or new suspicious mass. Left breast: There is no suspicious group of microcalcifications or new suspicious mass. Overall Assessment: Negative, BI-RAD 1 Management: Screening Mammogram of both breasts in [address] [facility] will attempt to contact patient to return for supplemental views and ultrasound if indicated. Patient should continue monthly self-breast exams. A clinical breast exam by your physician is recommended on an annual basis. This exam should not preclude additional follow-up of suspicious palpable abnormalities. Note on Nayeli scores and lifetime risk: 1. A Nayeli score greater than 3% is considered moderate risk. If this is the case, consider specialist referral to assess eligibility for a risk reducing agent. 2. If overall lifetime risk for the development of breast cancer is 20% or higher, the patient may qualify for future screening with alternating mammogram and breast MRI. [facility], , 05/10/2025 3:14 PM. Electronically signed and approved by: Marcelo Jolley DO
--- NOTE | 2025-05-12 07:24 | BD ---
EXAMINATION TYPE: Axial Bone Density DATE OF EXAM: 05/10/2025 CLINICAL HISTORY: 74 years old Female. ICD-10 CODE: M81.0 AGE RELATED OSTEO , Additional History: Height: 62 Weight: 119 FRAX RISK QUESTIONS: Secondary Osteoporosis: RISK FACTORS HISTORY OF: MEDICATIONS: Osteoporosis Medications: Which medication: Prolia How Long: about 6 years EXAM MEASUREMENTS: Bone mineral densitometry was performed using the [employer] System. Bone mineral density as measured about the Lumbar spine is: ----- L1-L4(G/cm2): 1.246 T Score Values are as follows: ----- L1: -1.0 ----- L2: -1.0 ----- L3: 0.6 ----- L4: 3.5 ----- L1-L4: 0.5 Z Score Values are as follows: ----- L1: 1.1 ----- L2: 1.1 ----- L3: 2.7 ----- L4: 5.6 ----- L1-L4: 2.7 Bone mineral density has: Increased 8.2% since study of: 10-01-22 Bone mineral density about the R hip (g/cm2): 0.836 Bone mineral density about the L hip (g/cm2): 0.783 T Score values are as follows: -----R Neck: -2.2 -----L Neck: -2.1 -----R Total: -1.4 -----L Total: -1.8 Z Score values are as follows: -----R Neck: -0.1 -----L Neck: 0.0 -----R Total: 0.6 -----L Total: 0.2 Bone mineral density has: Increased 9.2% since study of: 10-01-22 FRAX%s: The graph provided illustrates a 13.4% chance for a major osteoporotic fx and a 3.9% chance f or the hips probability for fx in 10 years time. IMPRESSION: Osteopenia (T Score between -2.5 and -1). There is slightly increased risk of fracture and the patient may be considered for treatment. Re-Screen 2-5 years. NOTE: T-SCORE=SD OF THE YOUNG ADULT MEAN. [facility], , 05/12/2025 7:22 AM
== END | disposition home or self-care (01) ==
LOC: RADMAMWWP 13:52
PROVIDERS: ATTEND Internal Medicine Geriatric Medicine
DX: Z12.31 Encounter for screening mammogram for malignant neoplasm of breast (principal); M81.0 Age-related osteoporosis without current pathological fracture; R92.333 Mammographic heterogeneous density, bilateral breasts; M85.89 Other specified disorders of bone density and structure, multiple sites; Z78.0 Asymptomatic menopausal state
CPT/HCPCS: 77063; 77067; 77080